=== PATIENT | male | born 1980 | race Caucasian/White ===

== ENCOUNTER 2023-11-27 10:11 | Emergency (ER) | payer MEDICAID ==
[~2023-11-27] VITALS: Ht 172.7 cm; Wt 79.5 kg
[2023-11-27 10:16] VITALS: BP 131/93; PULSE 74; RESP 18; TEMP 97.9
[2023-11-27] MEDS: LIDOCAINE 1% 10 ML VIAL SQ ONE (10:51)
[2023-11-27] MEDS ORDERED: HYDROGEN PEROXIDE 118 ML SOLUTION ONE (10:57)
[2023-11-27] MEDS ORDERED: CEPH-558 PO ×2 (11:19→15:46)
== END 2023-11-27 11:44 | disposition home or self-care (01) ==
LOC: EMS 10:11
DX: S61.213A Laceration without foreign body of left middle finger without damage to nail, initial encounter (principal); W31.89XA Contact with other specified machinery, initial encounter; Y93.89 Activity, other specified; Y92.89 Other specified places as the place of occurrence of the external cause; Y99.8 Other external cause status
CPT/HCPCS: 99283; 73140; 12001; J3490

== ENCOUNTER 2023-11-30 15:51 | Emergency (ER) | payer MEDICAID ==
[~2023-11-30] VITALS: Ht 157.5 cm; Wt 79.5 kg
[~2023-11-30 15:51] MED LIST: CEPH-558 PO
[2023-11-30 16:11] VITALS: BP 115/71; PULSE 74; RESP 18; TEMP 96.9
== END 2023-11-30 16:35 | disposition home or self-care (01) ==
LOC: EMS 15:51
DX: S61.211D Laceration without foreign body of left index finger without damage to nail, subsequent encounter (principal); X58.XXXA Exposure to other specified factors, initial encounter; Y93.89 Activity, other specified; Y92.89 Other specified places as the place of occurrence of the external cause; Y99.8 Other external cause status
CPT/HCPCS: 99281; Z7502

== ENCOUNTER 2023-12-12 18:13 | Emergency (ER) | payer MEDICAID ==
[~2023-12-12] VITALS: Ht 172.7 cm; Wt 79.5 kg
[2023-12-12 18:22] VITALS: BP 137/79; PULSE 69; RESP 16; TEMP 97.1
[2023-12-12] MEDS ORDERED: CEPH-558 PO (19:39)
[2023-12-12] MEDS ORDERED: SULF-261 PO (19:39)
[2023-12-12] MEDS: CEPHALEXIN MONOHYDRATE 500 MG CAPSULE PO ONE (19:51)
[2023-12-12] MEDS: SULFAMETHOX/TRIMETH DS 800-160 MG/TABLET PO ONE (19:51)
== END 2023-12-12 19:58 | disposition home or self-care (01) ==
LOC: EMS 18:15
DX: S61.213D Laceration without foreign body of left middle finger without damage to nail, subsequent encounter (principal); Z48.02 Encounter for removal of sutures; X58.XXXD Exposure to other specified factors, subsequent encounter
CPT/HCPCS: 99283